=== PATIENT | male | born 1985 | race Caucasian/White ===

== ENCOUNTER → 2016-04-12 | Outpatient (REF) | payer MEDICAID ==
[~2016-04-12] MED LIST: DEPAKOTE ER PO
== END ==
LOC: M LAB REF 12:24
PROVIDERS: ATTEND Physician Assistant Medical
DX: N39.0 Urinary tract infection, site not specified (principal); Z11.3 Encounter for screening for infections with a predominantly sexual mode of transmission

== ENCOUNTER → 2017-03-15 | Outpatient (CLI) | payer OTHER ==
[2017-03-15 19:17] LABS: BASO # 0.1 10^3/uL (0.0-0.2); EOS # 0.4 10^3/uL (0.0-0.50); EOS % 6.6 % (0.0-3.0); HEMATOCRIT 44.1 % (42.0-52.0); HEMOGLOBIN 15.2 g/dl (14.0-18.0); IMMATURE GRANULOCYTE % 0.3 % (0-0); LYMPH # 1.9 10^3/uL (1.5-4.5); LYMPH % 30.3 % (24.0-44.0); MEAN CORPUSCULAR HGB CONC 34.5 g/dl (32.0-36.5); MONO # 0.5 10^3/uL (0.0-0.8); MONO % 7.8 % (0.0-5.0); NEUTROPHILS # 3.3 10^3/uL (1.8-7.7); PLATELET COUNT, AUTOMATED 364 10^3/uL (150-450); RED CELL DISTRIBUTION WIDTH 12.7 % (11.5-14.5); WHITE BLOOD COUNT 6.2 10^3/uL (4.0-10.0)
[2017-03-15 19:37] LABS: ALBUMIN 4.5 GM/DL (3.2-5.2); ALBUMIN/GLOBULIN RATIO 1.67 (1.00-1.93); ALKALINE PHOSPHATASE 65 U/L (45-117); ALT/SGPT 61 U/L (12-78); ANION GAP 5 MEQ/L (8-16); AST/SGOT 29 U/L (7-37); BILIRUBIN,TOTAL 0.4 MG/DL (0.2-1.0); BLOOD UREA NITROGEN 17 MG/DL (7-18); CALCIUM LEVEL 9.2 MG/DL (8.5-10.1); CARBON DIOXIDE LEVEL 30 MEQ/L (21-32); CHLORIDE LEVEL 106 MEQ/L (98-107); CHOLESTEROL LEVEL 134 MG/DL (<200); CHOLESTEROL RISK RATIO 2.791 (<5); CREATININE FOR GFR 0.89 MG/DL (0.70-1.30); FREE T4 0.91 NG/DL (0.76-1.46); GLOMERULAR FILTRATION RATE > 60.0 (>60); GLUCOSE, FASTING 89 MG/DL (70-100); HDL CHOLESTEROL 48 MG/DL (>40); LDL CHOLESTEROL 75.2 MG/DL (<100); NON-HDL-C 86 MG/DL; POTASSIUM SERUM 4.5 MEQ/L (3.5-5.1); SODIUM LEVEL 141 MEQ/L (136-145); THYROID STIMULATING HORMONE 0.413 uIU/ML (0.358-3.740); TOTAL PROTEIN 7.2 GM/DL (6.4-8.2); TRIGLYCERIDES LEVEL 54 MG/DL (<150)
[2017-03-15 21:17] LABS: ESTIMATED AVERAGE GLUCOSE 105 MG/DL (60-110); HEMOGLOBIN A1c 5.3 %
[2017-03-17 10:12] LABS: HEPATITIS B SURFACE ANTIGEN NEGATIVE (NEGATIVE)
[2017-03-17 10:34] LABS: HEPATITIS B CORE ANTIBODY IGM NEGATIVE (NEGATIVE)
[2017-03-17 10:36] LABS: HEPATITIS A ANTIBODY IGM NEGATIVE (NEGATIVE)
[2017-03-17 12:08] LABS: HEPATITIS C VIRUS ABY INDEX > 11.0 INDEX (<0.8)
[2017-03-20 00:09] LABS: HEPATITIS C VIRUS GENOTYPE 1b (.)
[2017-03-20 08:06] LABS: HCV RNA NAA QUALITATIVE Positive (Negative)
[2017-03-20 10:08] LABS: HEPATITIS C QUANTITATION 213480 IU/mL (.)
== END ==
LOC: M WUC 11:15
DX: B19.20 Unspecified viral hepatitis C without hepatic coma (principal); F11.20 Opioid dependence, uncomplicated; Z79.899 Other long term (current) drug therapy
CPT/HCPCS: 84443

== ENCOUNTER → 2017-05-16 | Outpatient (CLI) | payer OTHER ==
[2017-05-16 18:07] LABS: ALBUMIN 4.8 GM/DL (3.2-5.2); ALBUMIN/GLOBULIN RATIO 1.55 (1.00-1.93); ALKALINE PHOSPHATASE 75 U/L (45-117); ALT/SGPT 60 U/L (12-78); AST/SGOT 28 U/L (7-37); BILIRUBIN,DIRECT 0.2 MG/DL (0.0-0.2); BILIRUBIN,TOTAL 0.6 MG/DL (0.2-1.0); TOTAL PROTEIN 7.9 GM/DL (6.4-8.2)
[2017-05-17 11:16] LABS: HEPATITIS B SURFACE ANTIBODY NEGATIVE (POSITIVE)
[2017-05-17 11:21] LABS: HIV 1&2 SCREEN CENTAUR NEGATIVE (NEGATIVE)
[2017-05-18 08:06] LABS: HEPATITIS A IgG TOTAL Positive (Negative)
[2017-05-19 08:06] LABS: ALPHA 2-MACROGLOBULIN 155 mg/dL (110-276); ALT 53 IU/L (0-55); APOLIPOPROTEIN A-1 142 mg/dL (101-178); FIBROSIS SCORE 0.15 (0.00-0.21); GGT 33 IU/L (0-65); HAPTOGLOBIN 78 mg/dL (34-200); NECROINFLAM SCORE 0.26 (0.00-0.17); NECROINFLAMM GRADE A0-A1 (.); TOTAL BILIRUBIN 0.6 mg/dL (0.0-1.2)
[2017-05-20 00:07] LABS: HIV-1 RNA PCR QUANT 2 LC550285 <20 copies/mL (.)
== END ==
LOC: M WUC 13:33
DX: B18.2 Chronic viral hepatitis C (principal)
CPT/HCPCS: 82247

== ENCOUNTER → 2017-06-19 | Outpatient (REF) | payer OTHER ==
[2017-06-19 12:24] LABS: ALBUMIN 4.7 GM/DL (3.2-5.2); ALBUMIN/GLOBULIN RATIO 1.62 (1.00-1.93); ALKALINE PHOSPHATASE 76 U/L (45-117); ALT/SGPT 25 U/L (12-78); AST/SGOT 19 U/L (7-37); BILIRUBIN,DIRECT 0.2 MG/DL (0.0-0.2); BILIRUBIN,TOTAL 0.6 MG/DL (0.2-1.0); TOTAL PROTEIN 7.6 GM/DL (6.4-8.2)
[2017-06-22 08:11] LABS: HEPATITIS C QUANTITATION <15 IU/mL (.)
== END ==
LOC: M SFHCPLAZ 09:00
DX: B18.2 Chronic viral hepatitis C (principal)
CPT/HCPCS: 80076

== ENCOUNTER → 2017-08-18 | Outpatient (CLI) | payer OTHER ==
[2017-08-18 12:15] LABS: BASO # 0.1 10^3/uL (0.0-0.2); EOS # 0.4 10^3/uL (0.0-0.50); EOS % 5.7 % (0.0-3.0); HEMOGLOBIN 14.9 g/dl (13.5-17.5); IMMATURE GRANULOCYTE % 0.1 % (0-3.0); LYMPH # 2.3 10^3/uL (1.5-4.5); LYMPH % 33.4 % (24.0-44.0); MEAN CORPUSCULAR HEMOGLOBIN 31.2 pg (27.0-33.0); MEAN CORPUSCULAR HGB CONC 35.5 g/dl (32.0-36.5); MEAN CORPUSCULAR VOLUME 87.9 fl (80.0-96.0); MONO # 0.6 10^3/uL (0.0-0.8); MONO % 8.4 % (0.0-5.0); NEUTROPHILS # 3.6 10^3/uL (1.8-7.7); NEUTROPHILS % 51.4 % (36.0-66.0); PLATELET COUNT, AUTOMATED 335 10^3/uL (150-450); RED BLOOD COUNT 4.78 10^6/uL (4.30-6.10)
[2017-08-18 13:07] LABS: ALBUMIN 4.4 GM/DL (3.2-5.2); ALBUMIN/GLOBULIN RATIO 1.47 (1.00-1.93); ALKALINE PHOSPHATASE 67 U/L (45-117); ALT/SGPT 18 U/L (12-78); ANION GAP 6 MEQ/L (8-16); AST/SGOT 13 U/L (7-37); BILIRUBIN,TOTAL 0.4 MG/DL (0.2-1.0); BLOOD UREA NITROGEN 21 MG/DL (7-18); CARBON DIOXIDE LEVEL 29 MEQ/L (21-32); CHLORIDE LEVEL 106 MEQ/L (98-107); GLOMERULAR FILTRATION RATE > 60.0 (>60); GLUCOSE, FASTING 90 MG/DL (70-100); POTASSIUM SERUM 4.8 MEQ/L (3.5-5.1); SODIUM LEVEL 141 MEQ/L (136-145); THYROID STIMULATING HORMONE 0.386 uIU/ML (0.358-3.740); TOTAL PROTEIN 7.4 GM/DL (6.4-8.2)
[2017-08-31 10:22] LABS: Cannabidiol Negative (.); Cannabinoid Confirmation Positive (.); Cannabinol Negative (.); Carboxy-THC 85.3 ng/mL (.); Hydroxy-THC Negative (.); OXYCODONE SCREEN Negative ng/mL (Cutoff:5); Tetrahydrocannabinol(THC) 3.1 ng/mL (.)
== END ==
LOC: M WUC 11:03
DX: F11.21 Opioid dependence, in remission (principal); F41.9 Anxiety disorder, unspecified; F18.10 Inhalant abuse, uncomplicated; B19.20 Unspecified viral hepatitis C without hepatic coma; F90.9 Attention-deficit hyperactivity disorder, unspecified type
CPT/HCPCS: 84443

== ENCOUNTER 2018-03-03 12:01 | Emergency (ER) | payer OTHER ==
[~2018-03-03] VITALS: Ht 167.6 cm; Wt 77.8 kg
[2018-03-03 12:02] VITALS: BP 125/75
[2018-03-03] MEDS ORDERED: NALT50TA4 PO (12:07)
[2018-03-03] MEDS ORDERED: CITA-231 PO (12:07)
[2018-03-03] MEDS ORDERED: CETI10TA (12:08)
[2018-03-03] MEDS ORDERED: ANORO (12:08)
[2018-03-03] MEDS ORDERED: HYDR50TA30 (12:08)
[2018-03-03] MEDS ORDERED: MONT10TA2 (12:08)
[2018-03-03] MEDS ORDERED: IBUP-1022 PO (12:22)
[2018-03-03] MEDS ORDERED: FLON1SPR NARES (12:22)
== END 2018-03-03 12:27 | disposition home or self-care (01) ==
LOC: M ED 12:01
DX: J30.9 Allergic rhinitis, unspecified (principal); F31.9 Bipolar disorder, unspecified; F90.9 Attention-deficit hyperactivity disorder, unspecified type; F17.210 Nicotine dependence, cigarettes, uncomplicated; Z79.899 Other long term (current) drug therapy

== ENCOUNTER → 2020-05-02 | Outpatient (CLI) | payer SELFPAY ==
[~2020-05-02] MED LIST changes: +ANORO; +CETI10TA; +CITA40TA6 PO; +FLON1SPR NARES; +HYDR50TA30; +IBUP-1022 PO; +MONT10TA10; +NALT50TA4 PO
== END ==
LOC: M LABSMTC 11:20
PROVIDERS: ATTEND Pediatrics
DX: Z20.822 Contact with and (suspected) exposure to COVID-19 (principal)

== ENCOUNTER → 2022-06-09 | Outpatient (REF) | payer OTHER ==
[~2022-06-09] MED LIST changes: -MONT10TA10; +MONT10TA97
[2022-06-09 15:00] LABS: APPEARANCE, URINE HAZY (CLEAR); BACTERIA, URINE AUTO NEGATIVE (NEGATIVE); BILIRUBIN, URINE AUTO NEGATIVE (NEGATIVE); BLOOD, URINE BLOOD 1+ (NEGATIVE); COLOR, URINE YELLOW (YELLOW); GLUCOSE, URINE (UA) AUTO NEGATIVE (NEGATIVE); KETONE, URINE AUTO TRACE mg/dL (NEGATIVE); LEUKOCYTE ESTERASE, URINE AUTO NEGATIVE (NEGATIVE); MUCUS, URINE MODERATE (NEGATIVE); NITRITE, URINE AUTO NEGATIVE (NEGATIVE); PROTEIN, URINE AUTO NEGATIVE (NEGATIVE); RBC, URINE AUTO 5 /HPF (0-3); SPECIFIC GRAVITY URINE AUTO 1.031 (1.002-1.035); SQUAMOUS EPITHELIAL CELL UR AU 1 /HPF (0-6); UROBILINOGEN, URINE AUTO 0.2 mg/dL (0.0-2.0); WBC, URINE AUTO 1 /HPF (0-3)
[2022-06-09 16:37] LABS: GC DNA AMPLIFICATION NEGATIVE (NEGATIVE)
== END ==
LOC: M LAB REF 13:06
PROVIDERS: ATTEND Physician Assistant
DX: Z20.2 Contact with and (suspected) exposure to infections with a predominantly sexual mode of transmission (principal)

== ENCOUNTER → 2022-06-09 | Outpatient (CLI) | payer OTHER | LOC: M WHC 12:38 | PROVIDERS: ATTEND Physician Assistant | DX: N50.89 Other specified disorders of the male genital organs (principal); N50.82 Scrotal pain ==

== ENCOUNTER → 2024-08-27 | Outpatient (CLI) | payer OTHER ==
[2024-08-27 19:29] LABS: PLATELET COUNT, AUTOMATED 393 10^3/uL (150-450)
[2024-08-27 19:38] LABS: ALT/SGPT 13 U/L (7.0-40); AST/SGOT 16 U/L (<34); CALCIUM LEVEL 9.7 MG/DL (8.5-10.1); CARBON DIOXIDE LEVEL 27 MMOL/L (20-31); CHLORIDE LEVEL 106 MMOL/L (98-107); CHOLESTEROL LEVEL 140 MG/DL (<200); CHOLESTEROL RISK RATIO 3.37 (<5); CREATININE FOR GFR 0.84 MG/DL (0.70-1.30); GLOMERULAR FILTRATION RATE > 90.0 (>60); LDL CHOLESTEROL 72.7 MG/DL (<100); NON-HDL-C 98.5 MG/DL; POTASSIUM SERUM 4.4 MMOL/L (3.5-5.1); SODIUM LEVEL 141 MMOL/L (136-145); TRIGLYCERIDES LEVEL 129 MG/DL (<150)
[2024-08-27 19:39] LABS: FREE T4 1.09 NG/DL (0.89-1.76)
[2024-08-27 19:40] LABS: TOTAL 25(OH) VITAMIN D 29.9 NG/ML (20.0-100.0)
[2024-09-02 18:57] LABS: TESTOSTERONE FREE (DIRECT) 73.0 pg/mL (35.0-155.0); TESTOSTERONE TOTAL FOR T&D 422.0 ng/dL (250-1100)
== END ==
LOC: M WUC 12:58
DX: J30.9 Allergic rhinitis, unspecified (principal); J44.9 Chronic obstructive pulmonary disease, unspecified; R53.83 Other fatigue; Z13.220 Encounter for screening for lipoid disorders; Z13.29 Encounter for screening for other suspected endocrine disorder

== ENCOUNTER → 2024-09-03 | Outpatient (CLI) | payer OTHER | LOC: M OUTALCOH 08:02 | PROVIDERS: ATTEND Psychiatry & Neurology Psychiatry | DX: F12.20 Cannabis dependence, uncomplicated (principal); F11.21 Opioid dependence, in remission ==

== ENCOUNTER 2024-09-12 12:34 | Outpatient (RCR) | payer OTHER | END 2024-09-19 | LOC: M OUTALCOH 12:34 | PROVIDERS: ATTEND Psychiatry & Neurology Psychiatry | DX: F12.20 Cannabis dependence, uncomplicated (principal); F11.20 Opioid dependence, uncomplicated ==

== ENCOUNTER 2024-10-18 15:00 | Outpatient (RCR) | payer OTHER ==
[~2024-10-18 15:00] MED LIST changes: -IBUP-1022 PO; +IBUP600T42 PO
== END 2024-10-20 ==
LOC: M OUTALCOH 15:00
PROVIDERS: ATTEND Psychiatry & Neurology Psychiatry
DX: F12.20 Cannabis dependence, uncomplicated (principal); F11.21 Opioid dependence, in remission
CPT/HCPCS: 99211; G0397

== ENCOUNTER 2024-11-08 13:57 | Outpatient (RCR) | payer OTHER | END 2024-11-19 | LOC: M OUTALCOH 13:57 | PROVIDERS: ATTEND Psychiatry & Neurology Psychiatry | DX: F12.20 Cannabis dependence, uncomplicated (principal); F11.21 Opioid dependence, in remission ==

== ENCOUNTER 2024-12-13 13:44 | Outpatient (RCR) | payer OTHER | END 2024-12-20 | LOC: M OUTALCOH 13:44 | PROVIDERS: ATTEND Psychiatry & Neurology Psychiatry | DX: F12.20 Cannabis dependence, uncomplicated (principal); F11.21 Opioid dependence, in remission | CPT/HCPCS: G0397 ×3 ==

== ENCOUNTER 2025-01-13 10:00 | Outpatient (RCR) | payer OTHER | END 2025-01-19 | LOC: M OUTALCOH 10:00 | PROVIDERS: ATTEND Psychiatry & Neurology Psychiatry | DX: F12.20 Cannabis dependence, uncomplicated (principal); F11.21 Opioid dependence, in remission ==

== ENCOUNTER 2025-02-12 14:39 | Outpatient (RCR) | payer OTHER | END 2025-02-19 | LOC: M OUTALCOH 14:39 | PROVIDERS: ATTEND Psychiatry & Neurology Psychiatry | DX: F12.20 Cannabis dependence, uncomplicated (principal); F11.21 Opioid dependence, in remission ==